=== PATIENT | male | born 1985 | race Caucasian/White ===

== ENCOUNTER 2018-01-15 13:40 | Day surgery (SDC) | payer OTHER ==
--- NOTE | 2018-01-11 10:30 | RADIOLOGY REPORT (SQ) ---
EXAM DESCRIPTION: CHEST PA/LATERAL COMPLETED DATE/TIME: 01/11/2018 10:00 am REASON FOR STUDY: PRE OP COMPARISON: None. EXAM PARAMETERS: NUMBER OF VIEWS: two views TECHNIQUE: Digital Frontal and Lateral radiographic views of the chest acquired. RADIATION DOSE: NA LIMITATIONS: none FINDINGS: LUNGS AND PLEURA: No opacities, masses or pneumothorax. No pleural effusion. MEDIASTINUM AND HILAR STRUCTURES: No masses or contour abnormalities. HEART AND VASCULAR STRUCTURES: Heart normal size. No evidence for failure. BONES: No acute findings. HARDWARE: None in the chest. OTHER: No other significant finding. IMPRESSION: NO SIGNIFICANT RADIOGRAPHIC FINDING IN THE CHEST. TECHNICAL DOCUMENTATION: JOB ID: [id number] [employer]- All Rights Reserved
[2018-01-11 11:03] LABS: ABSOLUTE EOSINOPHILS # (AUTO) 0.2 10^3/uL (0.0-0.6); ABSOLUTE LYMPHOCYTES (AUTO) 1.4 10^3/uL (0.5-4.7); ABSOLUTE MONOCYTES (AUTO) 0.3 10^3/uL (0.1-1.4); ABSOLUTE NEUT (AUTO) 2.8 10^3/uL (1.7-8.2); BASOPHILS % (AUTO) 0.7 % (0-2); EOSINOPHILS % (AUTO) 4.4 % (0-6); HEMATOCRIT 42.9 % (37.9-51.0); HEMOGLOBIN 14.4 g/dL (13.5-17.0); LYMPHOCYTES % (AUTO) 29.6 % (13-45); MEAN CORPUSCULAR HEMOGLOBIN 28.6 pg (27.0-33.4); MEAN CORPUSCULAR HGB CONC 33.7 g/dL (32.0-36.0); MEAN CORPUSCULAR VOLUME 85 fl (80-97); PLATELET COUNT 266 10^3/uL (150-450); RED BLOOD COUNT 5.04 10^6/uL (4.35-5.55); RED CELL DISTRIBUTION WIDTH 13.4 % (11.5-14.0); SEGMENTED NEUTROPHILS % (AUTO) 58.3 % (42-78); TOTAL CELLS COUNTED % (AUTO) 100 %; WHITE BLOOD COUNT 4.7 10^3/uL (4.0-10.5)
[2018-01-11 11:10] LABS: APPEARANCE,URINE CLEAR; BILIRUBIN,URINE NEGATIVE (NEGATIVE); COLOR,URINE YELLOW; GLUCOSE, URINE NEGATIVE (NEGATIVE); KETONES,URINE NEGATIVE (NEGATIVE); LEUKOCYTE ESTERASE,URINE NEGATIVE (NEGATIVE); NITRITE,URINE NEGATIVE (NEGATIVE); PROTEIN,URINE NEGATIVE (NEGATIVE); URINE SPECIFIC GRAVITY 1.016; UROBILINOGEN,URINE NEGATIVE mg/dL (<2.0)
[2018-01-11 11:30] LABS: ANION GAP 10 (5-19); BLOOD UREA NITROGEN 10 mg/dL (7-20); CALCIUM 9.7 mg/dL (8.4-10.2); CARBON DIOXIDE 29 mmol/L (22-30); CHLORIDE 104 mmol/L (98-107); GLUCOSE 88 mg/dL (75-110); POTASSIUM 4.5 mmol/L (3.6-5.0); SODIUM 143.4 mmol/L (137-145)
--- NOTE | 2018-01-11 13:21 | EKG REPORT ---
SEVERITY:- OTHERWISE NORMAL ECG - SINUS BRADYCARDIA : Confirmed by: Daniel Ramos MD 11-Jan-2018 13:21:07
[~2018-01-15 13:40] MED LIST: CEFAZOLIN 2 GM/D5W RTU 2 GM/50 ML RTUPB IV PRN; LACTATED RINGERS 1000 ML IV PRN; LIDOCAINE 0.5% INJ-PF (5 MG/ML) 50 ML SDV SUBCUT PRN
[2018-01-15] MEDS ORDERED: ACETAMINOPHEN 100 ML IV ONE (17:48)
[2018-01-15] MEDS ORDERED: LIDOCAINE 2% INJ-PF (20 MG/ML) 10 ML AMPUL ONE (17:48)
[2018-01-15] MEDS ORDERED: FENTANYL CITRATE INJ/PF 100 MCG/2 ML AMPUL ONE (17:48)
[2018-01-15] MEDS ORDERED: PROPOFOL INJ 200 MG/20 ML VIAL IV ONE ×2 (17:48→17:49)
[2018-01-15] MEDS ORDERED: MIDAZOLAM 2 MG/2 ML INJ ONE (17:48)
[2018-01-15] MEDS ORDERED: DEXMEDETOMIDINE INJ 80 MCG/20 ML VIAL IV ONE (17:49)
[2018-01-15] MEDS ORDERED: BUPIVACAINE HCL 0.5 % INJ/PF 30 ML SDV ONE (17:57)
[2018-01-15] MEDS ORDERED: LIDOCAINE 1% INJ-PF (10 MG/ML) 30 ML SDV ONE (17:58)
[2018-01-15] MEDS ORDERED: MEPERIDINE HCL/PF INJ 25 MG/1 ML DISP.SYRIN IV PRN (18:27)
[2018-01-15] MEDS ORDERED: MORPHINE SULFATE 10 MG/ML INJ IV PRN (18:27)
[2018-01-15] MEDS ORDERED: DIPHENHYDRAMINE HCL 50 MG/ML VIAL IV PRN (18:27)
[2018-01-15] MEDS ORDERED: OXYCODONE-ACETAMINOPHEN 5-325 MG TABLET PO PRN ×3 (18:27→19:50)
[2018-01-15] MEDS ORDERED: PROMETHAZINE HCL INJ 25 MG/1 ML VIAL IV PRN ×2 (18:27)
[2018-01-15] MEDS ORDERED: ONDANSETRON HCL INJ/PF 4 MG/2 ML SDV IV PRN ×2 (18:27→19:50)
[2018-01-15] MEDS ORDERED: FENTANYL CITRATE INJ/PF 100 MCG/2 ML AMPUL IV PRN ×3 (18:27)
[2018-01-15] MEDS ORDERED: HYDROMORPHONE HCL INJ/PF 2 MG/ML AMPULE IV PRN (19:50)
--- NOTE | 2018-01-15 19:50 | Operative Report ---
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 Contracture release with extensor Tenolysis small finger PIP joint, lateral band relocation with dorsal blocking pin. 2. Volar plate release distal phalanx with transarticular pinning SURGEON: ANTON HUMPHREY ANESTHESIA: LMAC COMPLICATIONS: None ESTIMATED BLOOD LOSS: Minimal PROCEDURE: Indication for above procedure: 32-year-old male who sustained an injury to his left small finger years ago. Subsequently developed a contracture and underwent volar contracture release. According to the patient after contracture release he developed extension deformity. And ultimately swan-neck deformity. We discussed treatment options including operative versus nonoperative intervention. Risks and benefits were explained patient verbalized understanding consented for the procedure. Procedure In Detail: Patient was seen and evaluated in the preoperative holding area. The LEFT upper extremity was initialized and marked. Patient received 2g of Ancef IV for bacterial prophylaxis. Patient was taken back to the operative room where transferred to the operative table. Once they were adequately anesthetized a nonsterile tourniquet was placed on the upper extremity. A surgical team debriefing was performed ensuring all instrumentation was available, the surgical procedure was discussed with possible concerns reviewed. A digital block was performed utilizing 10 mL 50:50 mixture of 0.5% Marcaine and 1% lidocaine without epinephrine. The upper extremity was prepped with chlorhexidine and alcohol and draped in a sterile fashion. A timeout was done identifying correct patient, procedure and extremity everyone in attendance agree with this and verbalized no concerns. The extremity was exsanguinated the tourniquet was inflated to 250 mmHg. Curvilinear skin incision was made centered over the PIP joint. Blunt dissection was performed any small peripheral bleeding was coagulated bipolar cautery. The extensor mechanism was then encountered. Longitudinal split of the extensor mechanism was made releasing the lateral bands to allow volar translocation in the dorsal capsule was released. After dorsal capsular release and volar translocation of the lateral bands patient continued to have extension contracture. The collateral ligaments were then released but patient continued to have extension contracture. A partial lengthening of the central slip was then performed with a [place] blade which adequately allowed flexion of the patient is extension of the PIP joint. Once the PIP joint was adequately released I turned my attention to the DIP joint which continued to have evidence of flexion contracture. Oblique skin incision was made along the DIP joint flexion crease. The A5 kezia was released exposing the FDP. The FDP was then retracted exposing the volar plate. And radial/ulnar collateral ligaments were released which allowed me improved extension however any further extension resulted in subluxation of the DIP joint. Thus the DIP joint was transarticular pinned in a more neutral position. C-arm fluoroscopy was obtained which demonstrated adequate osseous alignment of the DIP joint. The wounds were then copiously irrigated with normal saline and tourniquet deflated. Any peripheral bleeding was coagulated bipolar cautery until controlled. Skin incisions were closed with interrupted 4-0 nylon suture. Once the dorsal incision was closed a 0.045 K wire was placed within the proximal phalanx blocking splint to avoid hyperextension. The pin was bent and cut above the skin. Transarticular pin of the DIP joint was cut below the skin. The wound was dressed with Xeroform, 4 x 4's and patient was placed in a dorsal splint immobilizing the PIP joint. Patient had good peripheral perfusion of the small finger. Sponge counts, instrument counts, needle counts counts were correct. Patient was then awoken from anesthesia. Transferred from the operating room table to the operating room stretcher. There was no intraoperative complications patient tolerated procedure well stable to PACU. Postoperative plan: Patient will follow-up the office in 2 weeks he will begin occupational therapy within 48 hours to begin range of motion exercises. Anticipate removal of K wires 6 weeks postoperatively.
--- NOTE | 2018-01-15 19:52 | Discharge Summary ---
Discharge Summary (SDC) - Discharge Final Diagnosis: Left small finger swan-neck deformity Date of Surgery: 01/15/18 Discharge Date: 01/15/18 Condition: Good Treatment or Instructions: Schedule Follow Up w/ Dr. Domenic Nolasco @ [facility] for Surgery to be seen in 10-14 days or as scheduled [place]: [place]: [place]: Dressing will be removed at occupational therapy and range of motion began immediately. Ice and elevate Stool softener of choice when on pain medication. Prescriptions: Oxycodone HCl/Acetaminophen [Percocet 7.5-325 mg Tablet] 1 - 2 tab PO ASDIR PRN #35 tab PRN Reason: Discharge Diet: As Tolerated Respiratory Treatments at Home: Deep Breathing/Coughing Discharge Activity: No Lifting Over 10 Pounds, No Lifting/Push/Pulling Report the Following to Your Physician Immediately: Fever over 101 Degrees, Unusual Bleeding, Redness, Swelling, Warmth, Increased Soreness
[2018-01-15 21:24] VITALS: BP 105/70
--- NOTE | 2018-01-15 23:00 | RADIOLOGY REPORT (SQ) ---
EXAM DESCRIPTION: NO CHG FLUORO; FINGER LEFT COMPLETED DATE/TIME: 01/15/2018 7:49 pm REASON FOR STUDY: PERC PINNING M20.032 SWAN-NECK DEFORMITY OF LEFT FINGER(S) M79.645 PAIN IN LEFT FINGER(S) COMPARISON: None. FLUOROSCOPY TIME: 18 seconds 3 images saved to PACS. TECHNIQUE: Intra-operative images acquired during surgical procedure to evaluate progress. NUMBER OF IMAGES: 3 LIMITATIONS: None. FINDINGS: Orthopedic pins proximal middle phalanx left finger. IMPRESSION: IMAGE(S) OBTAINED DURING PROCEDURE. COMMENT: Quality ID 145: Final reports for procedures using fluoroscopy that document radiation exp osure indices, or exposure time and number of fluorographic images (if radiation exposure indices are not available) Please consult full operative report of the attending physician for description of the procedure. TECHNICAL DOCUMENTATION: JOB ID: [id number] [employer]- All Rights Reserved Reading location - IP/workstation name: [email or web address]
--- NOTE | 2018-01-15 23:00 | RADIOLOGY REPORT (SQ) ---
EXAM DESCRIPTION: NO CHG FLUORO; FINGER LEFT COMPLETED DATE/TIME: 01/15/2018 7:49 pm REASON FOR STUDY: PERC PINNING M20.032 SWAN-NECK DEFORMITY OF LEFT FINGER(S) M79.645 PAIN IN LEFT FINGER(S) COMPARISON: None. FLUOROSCOPY TIME: 18 seconds 3 images saved to PACS. TECHNIQUE: Intra-operative images acquired during surgical procedure to evaluate progress. NUMBER OF IMAGES: 3 LIMITATIONS: None. FINDINGS: Orthopedic pins proximal middle phalanx left finger. IMPRESSION: IMAGE(S) OBTAINED DURING PROCEDURE. COMMENT: Quality ID 145: Final reports for procedures using fluoroscopy that document radiation exp osure indices, or exposure time and number of fluorographic images (if radiation exposure indices are not available) Please consult full operative report of the attending physician for description of the procedure. TECHNICAL DOCUMENTATION: JOB ID: [id number] [employer]- All Rights Reserved Reading location - IP/workstation name: [email or web address]
== END 2018-01-15 21:40 | disposition home or self-care (01) ==
LOC: OROUT 13:40 → 2S 20:25 → OROUT 21:40
PROVIDERS: ATTEND Orthopaedic Surgery
PROC: 0MN Bursae and Ligaments, Release (ICD-10-PCS; principal; 2018-01-15 15:45)
DX: M20.032 Swan-neck deformity of left finger(s) (principal); M20.092 Other deformity of left finger(s); M79.645 Pain in left finger(s); I10 Essential (primary) hypertension; G43.909 Migraine, unspecified, not intractable, without status migrainosus; Z79.899 Other long term (current) drug therapy
CPT/HCPCS: 93005; 36415; 85025; 80048; 81001; 71046; 73140; 93010; 26418; 26989; 26548; C1769; J2250; J3490 ×4; J3010; J2704; J0690; J0131; 01810

== ENCOUNTER 2018-04-16 06:48 | Day surgery (SDC) | payer OTHER ==
[2018-04-09 10:18] LABS: HEMATOCRIT 45.4 % (37.9-51.0); HEMOGLOBIN 15.2 g/dL (13.5-17.0); MEAN CORPUSCULAR HEMOGLOBIN 28.6 pg (27.0-33.4); MEAN CORPUSCULAR HGB CONC 33.5 g/dL (32.0-36.0); MEAN CORPUSCULAR VOLUME 86 fl (80-97); PLATELET COUNT 273 10^3/uL (150-450); RED BLOOD COUNT 5.31 10^6/uL (4.35-5.55); RED CELL DISTRIBUTION WIDTH 13.4 % (11.5-14.0); WHITE BLOOD COUNT 5.1 10^3/uL (4.0-10.5)
[2018-04-09 10:29] LABS: APPEARANCE,URINE CLEAR; BILIRUBIN,URINE NEGATIVE (NEGATIVE); COLOR,URINE YELLOW; GLUCOSE, URINE NEGATIVE (NEGATIVE); KETONES,URINE TRACE mg/dL (NEGATIVE); LEUKOCYTE ESTERASE,URINE NEGATIVE (NEGATIVE); NITRITE,URINE NEGATIVE (NEGATIVE); PROTEIN,URINE NEGATIVE (NEGATIVE); UROBILINOGEN,URINE NEGATIVE mg/dL (<2.0)
[2018-04-09 10:55] LABS: ANION GAP 16 (5-19); BLOOD UREA NITROGEN 13 mg/dL (7-20); CALCIUM 10.4 mg/dL (8.4-10.2); CARBON DIOXIDE 31 mmol/L (22-30); CHLORIDE 99 mmol/L (98-107); GLUCOSE 93 mg/dL (75-110); SODIUM 145.6 mmol/L (137-145)
--- NOTE | 2018-04-09 11:12 | RADIOLOGY REPORT (SQ) ---
EXAM DESCRIPTION: CHEST PA/LATERAL COMPLETED DATE/TIME: 04/09/2018 10:15 am REASON FOR STUDY: PRE OP COMPARISON: 01/11/2018. TECHNIQUE: Frontal and lateral radiographic views of the chest acquired. NUMBER OF VIEWS: Two view. LIMITATIONS: None. FINDINGS: LUNGS AND PLEURA: No opacities, masses or pneumothorax. No pleural effusion. MEDIASTINUM AND HILAR STRUCTURES: No masses or contour abnormalities. HEART AND VASCULAR STRUCTURES: Heart normal size. No evidence for failure. BONES: No acute findings. HARDWARE: None in the chest. OTHER: No other significant finding. IMPRESSION: NO SIGNIFICANT RADIOGRAPHIC FINDING IN THE CHEST. TECHNICAL DOCUMENTATION: JOB ID: [id number] [employer]- All Rights Reserved Reading location - IP/workstation name: [email or web address]
--- NOTE | 2018-04-09 13:41 | EKG REPORT ---
SEVERITY:- ABNORMAL ECG - SINUS RHYTHM NONSPECIFIC BIPHASIC ST-T CHANGES ANTEROSEPTAL WALL, CLINICAL CORRELATION NEEDED. : Confirmed by: Daniel Ramos MD 09-Apr-2018 13:40:28
[~2018-04-16 06:48] MED LIST changes: +ACETAMINOPHEN 100 ML IV ONE; +DEXAMETHASONE SOD PHOSPHATE INJ 4 MG/1 ML VIAL ONE; +FENTANYL CITRATE INJ/PF 100 MCG/2 ML AMPUL ONE; +LIDOCAINE 2% INJ-PF (20 MG/ML) 10 ML AMPUL ONE; +MIDAZOLAM 2 MG/2 ML INJ ONE; +ONDANSETRON HCL INJ/PF 4 MG/2 ML SDV ONE; +PROPOFOL INJ 200 MG/20 ML VIAL IV ONE
[2018-04-16] MEDS ORDERED: BUPIVACAINE HCL 0.5 % INJ/PF 30 ML SDV ONE (07:20)
[2018-04-16] MEDS ORDERED: FENTANYL CITRATE INJ/PF 100 MCG/2 ML AMPUL IV PRN ×3 (09:24)
[2018-04-16] MEDS ORDERED: MEPERIDINE HCL/PF INJ 25 MG/1 ML DISP.SYRIN IV PRN (09:24)
[2018-04-16] MEDS ORDERED: MORPHINE SULFATE 10 MG/ML INJ IV PRN (09:24)
[2018-04-16] MEDS ORDERED: ONDANSETRON HCL INJ/PF 4 MG/2 ML SDV IV PRN ×2 (09:24→10:13)
[2018-04-16] MEDS ORDERED: DIPHENHYDRAMINE HCL 50 MG/ML VIAL IV PRN (09:24)
[2018-04-16] MEDS ORDERED: PROMETHAZINE HCL INJ 25 MG/1 ML VIAL IV PRN ×2 (09:24)
[2018-04-16] MEDS ORDERED: KETOROLAC TROMETHAMINE 60 MG/2 ML SDV ONE (09:29)
[2018-04-16] MEDS ORDERED: SUCCINYLCHOLINE CHLORIDE INJ 200 MG/10 ML VIAL ONE (09:29)
[2018-04-16] MEDS ORDERED: OXYCODONE-ACETAMINOPHEN 5-325 MG TABLET PO PRN (10:13)
[2018-04-16] MEDS ORDERED: HYDROMORPHONE HCL INJ/PF 2 MG/ML AMPULE IV PRN (10:13)
--- NOTE | 2018-04-16 10:13 | Discharge Summary ---
Discharge Summary (SDC) - Discharge Final Diagnosis: Right fifth digit chronic flexion contracture Date of Surgery: 04/16/18 Discharge Date: 04/16/18 Condition: Good Treatment or Instructions: Schedule Follow Up w/ Dr. Domenic Nolasco @ [facility] for Surgery to be seen in 10-14 days or as scheduled [place]: [place]: [place]: May remove dressing on postop day #3, keep incision covered and dry. Ice and elevate May begin finger range of motion attempting to make full fist. Stool softener of choice when on pain medication. Prescriptions: Ketorolac Tromethamine [Toradol 10 mg Tablet] 10 mg PO Q8HP PRN #10 tablet PRN Reason: Gabapentin [Neurontin 100 mg Capsule] 100 mg PO Q12 #60 capsule Oxycodone HCl/Acetaminophen [Percocet 7.5-325 mg Tablet] 1 - 2 tab PO ASDIR PRN #35 tab PRN Reason: Referrals: ROCK BRUMFIELD DO [Primary Care Provider] - Discharge Diet: As Tolerated Respiratory Treatments at Home: Deep Breathing/Coughing Discharge Activity: No Lifting Over 10 Pounds, No Lifting/Push/Pulling Report the Following to Your Physician Immediately: Fever over 101 Degrees, Unusual Bleeding, Redness, Swelling, Warmth, Increased Soreness
--- NOTE | 2018-04-16 10:18 | Operative Report ---
Operative Report DATE OF SURGERY: 04/16/18 PREOPERATIVE DIAGNOSIS: Left small finger flexion contracture DIP/PIP joint POSTOPERATIVE DIAGNOSIS: Same OPERATION: Left fifth ray resection SURGEON: ANTON HUMPHREY ANESTHESIA: GA COMPLICATIONS: None ESTIMATED BLOOD LOSS: Minimal PROCEDURE: Indication for above procedure: 32-year-old male who sustained a injury to his left small finger. Multiple procedures were attempted to improve patient's flexion contracture unforeseen patient continued to have functional limitation and given his activity level and function he felt as though the digit was causing him more discomfort and functional limitation. We discussed treatment options including proceeding with possible radial resection. Second opinion was obtained from a outside hand surgeon who agreed that amputation was a reasonable option. Risks and benefits of the surgical procedure were explained to the patient patient verbalized understanding consented for the procedure. Procedure In Detail: Patient was seen and evaluated in the preoperative holding area. The upper extremity was initialized and marked. Patient received 2g of Ancef IV for bacterial prophylaxis. Patient was taken back to the operative room where transferred to the operative table and placed under general anesthesia. Once they were adequately anesthetized a nonsterile tourniquet was placed on the upper extremity. A surgical team debriefing was performed ensuring all instrumentation was available, the surgical procedure was discussed with possible concerns reviewed. The upper extremity was prepped with chlorhexidine and alcohol and draped in a sterile fashion. A timeout was done identifying correct patient, procedure and extremity everyone in attendance agree with this and verbalized no concerns. The extremity was exsanguinated the tourniquet was inflated to 250 mmHg. 10 cc of 0.5% Marcaine with epinephrine was injected for postoperative pain control. Chevron shaped incision was made volarly and extending dorsally to a longitudinal incision. Sharp dissection was performed to the soft tissues. Any peripheral veins were coagulated bipolar cautery. The neurovascular bundles radially and ulnarly were identified and marked for later excision. Dorsal ulnar sensory branches were also identified. The flexor tendon extensor tendons were then incised and the collaterals released and excised from the metacarpal head disarticulating the MCP joint. Once the MCP joint was disarticulated a periosteal elevator was utilized dorsally and volarly exposing the metacarpal shaft. Hohmann retractors were then placed and a oblique osteotomy was made within the distal third of the metacarpal maintaining the insertions of the ECU/FCU. The edges were then smoothed with a rasp to avoid postoperative irritation. The digital arteries were isolated and bipolared. The radial and ulnar digital nerves were identified and resected distal to the branching points of the proper digital nerves. The tourniquet was deflated. 2 minutes of compression was held any remaining bleeding was controlled with bipolar cautery into the wound was dry. The ulnar section of the soft tissue was then excised and the wound closed with interrupted 3-0 nylon maintaining contour of the remaining fifth ray for cosmesis postoperatively. Once closure was complete patient had a smooth transition from the fourth to the fifth metacarpal. An additional 20 cc of 0.5% Marcaine without epinephrine was injected for postoperative pain control. Wound was dressed with Xeroform 4 x 4's and a soft dressing. Sponge counts, instrument counts, needle counts counts were correct. Patient was then awoken from anesthesia. Transferred from the operating room table to the operating room stretcher. There was no intraoperative complications patient tolerated procedure well stable to PACU. Postoperative plan: Patient will begin range of motion initially. If he has limited motion will consider occupational therapy.
[2018-04-16 13:25] VITALS: BP 107/65
== END 2018-04-16 12:20 | disposition home or self-care (01) ==
LOC: OROUT 06:48
PROVIDERS: ATTEND Orthopaedic Surgery
DX: M20.032 Swan-neck deformity of left finger(s) (principal); Z01.89 Encounter for other specified special examinations; I10 Essential (primary) hypertension; G43.909 Migraine, unspecified, not intractable, without status migrainosus; F32.9 Major depressive disorder, single episode, unspecified; F41.9 Anxiety disorder, unspecified; Z79.899 Other long term (current) drug therapy
CPT/HCPCS: 93005; 36415; 85027; 80048; 81001; 88304 ×2; 71046; 93010; 26910; J2250; J3490 ×2; J1100; J1885; J3010; J0330; J2405; J2704; J0690; J0131; 1830